=== PATIENT | female | born 1975 | race African-American/Black ===

== ENCOUNTER 2017-06-06 10:45 | Emergency (ER) | payer OTHER ==
[~2017-06-06] VITALS: Ht 167.6 cm; Wt 90.7 kg
[~2017-06-06 10:45] MED LIST: KENALOG 0.1% CR15 GM APPLIC; NKM
[2017-06-06 10:50] VITALS: BP 141/85
[2017-06-06] MEDS ORDERED: KENALOG 0.025%15 GM APPLIC (11:20)
[2017-06-06] MEDS ORDERED: ADULT WAL-100 MG/5 M ORAL (11:47)
[2017-06-06 11:48] VITALS: BP 116/75
[2017-06-06 11:50] VITALS: BP 116/75
--- NOTE | 2017-06-06 15:54 | Emergency Room Report ---
History of Present Illness General Chief Complaint: Skin Rash/Abscess Source: Patient Present Illness HPI The patient is a 41-year-old female presents for increased rash. Patient states it has prior history of dyshidrotic eczema. She reports having increased rash. Her neck as well as to her hands. She denies recent necklace use or any fever. She reports having upper respiratory infection. Allergies: Coded Allergies: No Known Allergies (Unverified , 09/02/12) Patient History Past Medical History: see triage record Now: No Reviewed Nursing Documentation: PMH: Agreed, PSxH: Agreed Nursing Documentation-PMH Past Medical History: No Stated History Hx Cancer: No Review of Systems All Other Systems: negative except mentioned in HPI Physical Exam Vital Signs Date Time Temp Pulse Resp B/P (MAP) Pulse Ox O2 Delivery O2 Flow Rate FiO2 06/06/17 10:50 98.9 62 18 141/85 98 Room Air 98.9 General Appearance: well appearing, no apparent distress, alert, GCS 15 Head: normocephalic, atraumatic ENT: hearing grossly normal, normal voice Neck: full range of motion, supple Respiratory: no respiratory distress, speaking full sentences Musculoskeletal: no calf tenderness Neurologic: normal inspection, alert, oriented x3, responsive, manager alliance III-XII nml as tested, motor strength/tone normal, normal gait Psychiatric: mood/affect normal Skin: other - scaly rash near neck, some blistering between fingers without ulceration Medical Decision Making Diagnostic Impression: Primary Impression: Eczema ER Course Patient presented for skin rash. Differential diagnosis included was not limited to Hilario-Jacek syndrome, urticaria, erythema multiforme, contact dermatitis. Patient's benign exam and does not appear to require any further imaging or laboratory testing at this time. The patient presented exacerbation of her eczema.The patient is advised to follow up with primary care doctor in 1 -2 days. Patient is advised to return if any worsening condition or if any changes in status that are concerning. This report is dictated with [employer] clean energy policy analyst software which may occasionally lead to discrepancies related to use of this software. Last Vital Signs Date Time Temp Pulse Resp B/P (MAP) Pulse Ox O2 Delivery O2 Flow Rate FiO2 06/06/17 11:50 98.2 62 17 116/75 97 Room Air 98.2 Status: improved Disposition: HOME, SELF-CARE Condition: Stable Scripts Guaifenesin* (ADULT WAL-TUSSIN*) 100 Mg/5 Ml Liquid 10 ML ORAL Q4H for For Cough, #120 ML Prov: Boaz Aviles 06/06/17 Triamcinolone Acet (Triamcinolone Acetonide) 15 Gm Cream..g. 15 GM APPLIC DAILY, #15 GM Prov: Boaz Aviles 06/06/17 [facility] ([facility]P) Patient Instructions: Eczema Boaz Aviles Jun 06, 2017 15:53
== END 2017-06-06 11:50 | disposition home or self-care (01) ==
LOC: EMR 11:10
DX: L30.9 Dermatitis, unspecified (principal)
CPT/HCPCS: 99283

== ENCOUNTER 2017-06-21 10:52 | Emergency (ER) | payer OTHER ==
[~2017-06-21] VITALS: Ht 167.6 cm; Wt 99.8 kg
[~2017-06-21 10:52] MED LIST changes: +ADULT WAL-100 MG/5 M ORAL; +KENALOG 0.025%15 GM APPLIC
--- NOTE | 2017-06-21 12:04 | Emergency Room Report ---
History of Present Illness General Chief Complaint: Flu Like Symptoms Source: Patient Present Illness HPI 41 yo female patient presents to ER complaining of cough and flu-like symptoms x3 days. Patient repots cough with sputum. Complains of subjective fever, BRIAN, and chills. Reports taking Theraflu for relief of symptoms; denies use of Ibuprofen or Acetaminophen. Patient reports hx of sick contacts at work. Patient denies nausea, vomiting. Complains of diarrhea; denies blood in stool. Patient reports hx of asthma; has not use medication in "a long time". Denies hx of cardiovascular disease. Denies dysuria, hematuria, chest pain, rash. Allergies: Coded Allergies: No Known Allergies (Unverified , 09/02/12) Patient History Past Medical History: see triage record Now: No Reviewed Nursing Documentation: PMH: Agreed, PSxH: Agreed Nursing Documentation-PMH Past Medical History: No Stated History Hx Cancer: No Review of Systems All Other Systems: negative except mentioned in HPI Physical Exam Vital Signs Date Time Temp Pulse Resp B/P (MAP) Pulse Ox O2 Delivery O2 Flow Rate FiO2 06/21/17 11:07 99.4 110 17 117/73 98 Room Air 99.3 Sp02 EP Interpretation: reviewed, normal General Appearance: well appearing, no apparent distress, alert, GCS 15 Head: normocephalic, atraumatic Eyes: bilateral eye normal inspection, bilateral eye PERRL ENT: hearing grossly normal, normal pharynx, no angioedema, normal voice, TMs + canals normal, uvula midline, moist mucus membranes Neck: full range of motion, no bony tend Respiratory: lungs clear, no rhonchi, no respiratory distress, no accessory muscle use, no wheezing, speaking full sentences, other - decreased breath sounds, chest TTP Cardiovascular #1: regular rate, rhythm, no edema Gastrointestinal: non tender, soft, no mass, non-distended, no guarding, no rebound Musculoskeletal: back normal, digits/nails normal, gait/station normal, normal range of motion, non-tender Neurologic: alert, oriented x3, responsive, motor strength/tone normal, sensory intact Psychiatric: mood/affect normal Skin: no rash Lymphatic: no adenopathy Medical Decision Making PA Attestation Dr. Aviles is my supervising Physician whom patient management has been discussed with. Diagnostic Impression: Primary Impression: Urinary tract infection Additional Impression: Influenza-like symptoms ER Course Pt presents to ED c/o cough and flu-like symptoms. DDX considered but are not limited to viral URI, bronchitis, UTI. On PE, no wheezes, rhonci or rales, decreased air movement, will provide breathing treatment. Chest is TTP; chest pain likely musculoskeletal in nature secondary to cough, does not require cardiac workup at this time. Patient instructed to take NSAIDs as needed for pain symptoms. Patient is afebrile, no crackles or rhonci on auscultation, well appearing; low suspicion for PNA, does not require CXR at this time. Patient instructed to take NSAIDs as needed for pain symptoms. VITAL SIGNS are WNL, patient is afebrile. Ordered breathing treatment, medication, and UA. ER COURSE UA shows WBC and leukocyte esterase. Will treat for UTI with abx. Discussed results with patient. Patient provided with dexamethasone. Albuterol/Atrovent breathing treatment provided. Following treatment patient lungs clear to auscultation, air moving well, no wheezes, rhonci or rales. Patient is breathing without difficulty. Patient is resting comfortably in no acute distress. DISCHARGE: -Rx given for Prednisone. -Rx provided for Albuterol MDI. -Rx provided for Bactrim At this time pt is stable for d/c to home. Patient is resting comfortably in no acute distress, nontoxic appearing, able to answer questions without difficulty. Patient to take medications as instructed Will provide with patient care instructions and any necessary prescriptions. Care plan and follow-up instructions provided. Patient instructed to follow-up with primary care provider in 3 - 5 days for further treatment and referral. Patient questions asked and answered. Patient reports understanding and agreement to treatment plan. ER precautions given. Patient instructed to return to ER immediately for any new or worsening of symptoms including but not limited to increasing SOB, persistent fever. Labs Test 06/21/17 12:40 Urine Color Yellow Urine Appearance Clear Urine pH 5 (4.5-8.0) Urine Specific [place] 1.025 (1.005-1.035) Urine Protein 2+ (NEGATIVE) Urine Glucose (UA) Negative (NEGATIVE) Urine Ketones 2+ (NEGATIVE) Urine Occult Blood 2+ (NEGATIVE) Urine Nitrite Negative (NEGATIVE) Urine Bilirubin Negative (NEGATIVE) Urine Urobilinogen 1 MG/DL (0.0-1.0) Urine Leukocyte Esterase 1+ (NEGATIVE) Urine RBC 2-4 /HPF (0 - 2) Urine WBC 2-4 /HPF (0 - 2) Urine Squamous Epithelial Cells Few /LPF (NONE/OCC) Urine Bacteria Few /HPF (NONE) Urine Mucus Moderate /LPF (NONE/OCC) Last Vital Signs Date Time Temp Pulse Resp B/P (MAP) Pulse Ox O2 Delivery O2 Flow Rate FiO2 06/21/17 11:36 110 17 Room Air 06/21/17 11:07 99.4 117/73 98 99.3 Disposition: HOME, SELF-CARE Condition: Stable Scripts Acetaminophen* (TYLENOL EXTRA STRENGTH*) 500 Mg Tablet 500 MG ORAL Q8H Y for Prn Headache/Temp > 101, #30 TAB 0 Refills Prov: Dylon Zelaya 06/21/17 Trimethoprim/Sulfamethoxazole 160/800* (BACTRIM DS TABLET*) 1 Each Tablet 1 TAB ORAL TWICE A DAY for 7 Days, #14 TAB Prov: Dylon Zelaya 06/21/17 Albuterol Sulfate* (ALBUTEROL SULFATE MDI*) 8.5 Gm Hfa.aer.ad 2 PUFF INH Q6H, #1 INH 0 Refills Prov: Dylon Zelaya 06/21/17 Patient Instructions: Upper Respiratory Infection, Adult, [id number], Urinary Tract Infection Additional Instructions: Followup with primary care provider in 3 -5 days. Take medications as directed. Patient questions asked and answered. ER precautions given, patient instructed to return to ER immediately for any new or worsening of symptoms. Dylon Zelaya Jun 21, 2017 12:04
[2017-06-21] MEDS ORDERED: Albuterol/Ipratropium 3ml neb HHN ONE ×2 (12:15)
[2017-06-21 13:15] LABS: BILIRUBIN, URINE NEGATIVE (NEGATIVE); GLUCOSE, URINE (UA) NEGATIVE (NEGATIVE); KETONES,URINE 2+ (NEGATIVE); LEUKOCYTE ESTERASE ,URINE 1+ (NEGATIVE); NITRITE,URINE NEGATIVE (NEGATIVE); PH,URINE 5 (4.5-8.0); PROTEIN,URINE 2+ (NEGATIVE); UROBILINOGEN,URINE 1 MG/DL (0.0-1.0)
[2017-06-21 13:17] LABS: APPEARANCE,URINE CLEAR; COLOR,URINE YELLOW
[2017-06-21] MEDS ORDERED: BACTRIM DS TAB1 EAC1 ORAL (13:30)
[2017-06-21] MEDS ORDERED: TYLENOL EXTRA500 MG ORAL (13:30)
[2017-06-21] MEDS ORDERED: ALBUTEROL SULF8.5 GM INH (13:30)
[2017-06-21 13:39] VITALS: BP 125/80
== END 2017-06-21 13:40 | disposition home or self-care (01) ==
LOC: EMR 13:40
DX: N39.0 Urinary tract infection, site not specified (principal); J11.1 Influenza due to unidentified influenza virus with other respiratory manifestations
CPT/HCPCS: 81003; 94640; 94664; 99284; J8540; J7620

== ENCOUNTER 2018-02-11 19:25 | Emergency (ER) | payer OTHER ==
[~2018-02-11] VITALS: Ht 167.6 cm; Wt 99.8 kg
[~2018-02-11 19:25] MED LIST changes: +ALBUTEROL SULF8.5 GM INH; +BACTRIM DS TAB1 EAC1 ORAL; +TYLENOL EXTRA500 MG ORAL
[2018-02-11 19:44] VITALS: BP 160/99
[2018-02-11] MEDS ORDERED: Sodium Chloride 500ML 500 ML IV ONE (19:55)
--- NOTE | 2018-02-11 19:56 | Emergency Room Report ---
History of Present Illness General Chief Complaint: Abdominal Pain Source: Patient Present Illness HPI Patient is a 42-year-old female who presented after one day of increased epigastric pain. Patient reports having prior history of tubal ligation. She denies other surgeries. Patient reports having nausea and vomiting. She states this began after eating Martiniquais food. She denies any fever. She had not been having any diarrhea. Allergies: Coded Allergies: No Known Allergies (Unverified , 09/02/12) Patient History Past Medical History: see triage record Last Menstrual Period: NA Now: No Reviewed Nursing Documentation: PMH: Agreed; PSxH: Agreed Nursing Documentation-PMH Past Medical History: No Stated History Hx Cancer: No Review of Systems All Other Systems: negative except mentioned in HPI Physical Exam Vital Signs Date Time Temp Pulse Resp B/P (MAP) Pulse Ox O2 Delivery O2 Flow Rate FiO2 02/11/18 19:31 98.2 78 18 160/99 100 Room Air Sp02 EP Interpretation: reviewed, normal General Appearance: normal inspection, well appearing, no apparent distress, alert, GCS 15 Head: atraumatic ENT: normal ENT inspection, hearing grossly normal, normal voice Neck: normal inspection, full range of motion, supple, no bony tend Respiratory: normal inspection, lungs clear, normal breath sounds, no respiratory distress, no retraction, no wheezing Cardiovascular #1: regular rate, rhythm, no edema Gastrointestinal: normal inspection, soft, tenderness - suprapubic and right lower abdomen Genitourinary: no CVA tenderness Musculoskeletal: normal inspection, back normal, normal range of motion Neurologic: normal inspection, alert, oriented x3, responsive, braz[employer] production line III-XII nml as tested, speech normal Psychiatric: normal inspection, judgement/insight normal, mood/affect normal Skin: normal inspection, normal color, no rash Medical Decision Making Diagnostic Impression: Primary Impression: Abdominal pain Additional Impression: Pelvic congestion ER Course Patient presented for abdominal pain. Differential diagnoses included ischemic bowel, appendicitis, perforated viscus, abdominal aortic aneurysm, inferior myocardial infarction, viral gastroenteritis Because of complexity of patient's case laboratory testing and imaging studies were ordered. CT imaging of the abdomen pelvis read by radiology showed some evidence of pelvic congestion. The laboratory testing was unremarkable.The patient was advised outpatient MANAGER TRANSFER follow-up as she was given prescription for doxycycline and Colace.The patient's return if she had any worsening condition or other concerns. Labs Test 02/11/18 19:55 02/11/18 20:05 Urine Color Pale yellow Urine Appearance Clear Urine pH 5 (4.5-8.0) Urine Specific [place] 1.015 (1.005-1.035) Urine Protein Negative (NEGATIVE) Urine Glucose (UA) Negative (NEGATIVE) Urine Ketones Negative (NEGATIVE) Urine Blood Negative (NEGATIVE) Urine Nitrite Negative (NEGATIVE) Urine Bilirubin Negative (NEGATIVE) Urine Urobilinogen Normal MG/DL (0.0-1.0) Urine Leukocyte Esterase Negative (NEGATIVE) Urine HCG, Qualitative Negative (NEGATIVE) Urine Opiates Screen Negative (NEGATIVE) Urine Barbiturates Screen Negative (NEGATIVE) Phencyclidine (PCP) Screen Negative (NEGATIVE) Urine Amphetamines Screen Negative (NEGATIVE) Urine Benzodiazepines Screen Negative (NEGATIVE) Urine Cocaine Screen Negative (NEGATIVE) Urine Marijuana (THC) Screen Negative (NEGATIVE) White Blood Count 9.8 K/UL (4.8-10.8) Red Blood Count 3.89 M/UL (4.20-5.40) Hemoglobin 12.4 G/DL (12.0-16.0) Hematocrit 36.5 % (37.0-47.0) Mean Corpuscular Volume 94 FL (80-99) Mean Corpuscular Hemoglobin 31.9 PG (27.0-31.0) Mean Corpuscular Hemoglobin Concent 34.0 G/DL (32.0-36.0) Red Cell Distribution Width 11.8 % (11.6-14.8) Platelet Count 364 K/UL (150-450) Mean Platelet Volume 5.9 FL (6.5-10.1) Neutrophils (%) (Auto) 52.4 % (45.0-75.0) Lymphocytes (%) (Auto) 37.4 % (20.0-45.0) Monocytes (%) (Auto) 7.4 % (1.0-10.0) Eosinophils (%) (Auto) 2.0 % (0.0-3.0) Basophils (%) (Auto) 0.8 % (0.0-2.0) Sodium Level 140 MMOL/L (136-145) Potassium Level 3.8 MMOL/L (3.5-5.1) Chloride Level 104 MMOL/L (98-107) Carbon Dioxide Level 26 MMOL/L (21-32) Anion Gap 10 mmol/L (5-15) Blood Urea Nitrogen 9 mg/dL (7-18) Creatinine 0.9 MG/DL (0.55-1.30) Estimat Glomerular Filtration Rate > 60 mL/min (>60) Glucose Level 88 MG/DL (74-106) Calcium Level 8.8 MG/DL (8.5-10.1) Total Bilirubin 0.2 MG/DL (0.2-1.0) Aspartate Amino Transf (AST/SGOT) 22 U/L (15-37) Alanine Aminotransferase (ALT/SGPT) 30 U/L (12-78) Alkaline Phosphatase 89 U/L (46-116) Total Protein 7.7 G/DL (6.4-8.2) Albumin 3.5 G/DL (3.4-5.0) Globulin 4.2 g/dL Albumin/Globulin Ratio 0.8 (1.0-2.7) Lipase 142 U/L (73-393) Last Vital Signs Date Time Temp Pulse Resp B/P (MAP) Pulse Ox O2 Delivery O2 Flow Rate FiO2 02/11/18 19:44 78 18 Room Air 02/11/18 19:44 98.2 160/99 100 Status: improved Disposition: HOME, SELF-CARE Condition: Stable Scripts Doxycycline Monohydrate* (DOXYCYCLINE MONOHYDRATE*) 100 Mg Capsule 100 MG ORAL Q12H, #14 CAP 0 Refills Prov: Boaz Aviles MD 02/11/18 Docusate Sodium* (COLACE*) 100 Mg Capsule 100 MG ORAL TWICE A DAY, #20 CAP Prov: Boaz Aviles MD 02/11/18 Boaz Aviles MD Feb 11, 2018 19:56
[2018-02-11] MEDS ORDERED: Isovue-300 100ml vial INJ PRN (20:00)
[2018-02-11 20:06] LABS: APPEARANCE,URINE CLEAR; BILIRUBIN, URINE NEGATIVE (NEGATIVE); COLOR,URINE PALE YELLOW; GLUCOSE, URINE (UA) NEGATIVE (NEGATIVE); KETONES,URINE NEGATIVE (NEGATIVE); LEUKOCYTE ESTERASE ,URINE NEGATIVE (NEGATIVE); NITRITE,URINE NEGATIVE (NEGATIVE); PH,URINE 5 (4.5-8.0); PROTEIN,URINE NEGATIVE (NEGATIVE); UROBILINOGEN,URINE NORMAL MG/DL (0.0-1.0)
[2018-02-11 20:17] LABS: BASOPHILS % (AUTO) 0.8 % (0.0-2.0); HEMATOCRIT 36.5 % (37.0-47.0); HEMOGLOBIN 12.4 G/DL (12.0-16.0); LYMPHOCYTES % (AUTO) 37.4 % (20.0-45.0); MEAN CORPUSCULAR VOLUME 94 FL (80-99); MONOCYTES % (AUTO) 7.4 % (1.0-10.0); NEUTROPHILS % (AUTO) 52.4 % (45.0-75.0); PLATELET COUNT 364 K/UL (150-450); RED BLOOD COUNT 3.89 M/UL (4.20-5.40); RED CELL DISTRIBUTION WIDTH 11.8 % (11.6-14.8); WHITE BLOOD COUNT 9.8 K/UL (4.8-10.8)
[2018-02-11 20:23] LABS: ANION GAP 10 mmol/L (5-15); BLOOD UREA NITROGEN 9 mg/dL (7-18); CALCIUM 8.8 MG/DL (8.5-10.1); CARBON DIOXIDE 26 MMOL/L (21-32); CHLORIDE 104 MMOL/L (98-107); CREATININE 0.9 MG/DL (0.55-1.30); POTASSIUM 3.8 MMOL/L (3.5-5.1); SODIUM 140 MMOL/L (136-145)
[2018-02-11 20:29] LABS: ALANINE AMINOTRANSFERASE 30 U/L (12-78); ALBUMIN 3.5 G/DL (3.4-5.0); ALBUMIN/GLOBULIN RATIO 0.8 (1.0-2.7); ALKALINE PHOSPHATASE 89 U/L (46-116); ASPARTATE AMINO TRANSFERASE 22 U/L (15-37); BILIRUBIN,TOTAL 0.2 MG/DL (0.2-1.0)
--- NOTE | 2018-02-11 20:58 | Diagnostic Imaging Report ---
EXAM: CT Abdomen and Pelvis With Intravenous Contrast CLINICAL HISTORY: ABD PAIN TECHNIQUE: Axial computed tomography images of the abdomen and pelvis with intravenous contrast. CTDI is 19 mGy and DLP is 999 mGy-cm. One or more of the following dose reduction techniques were used: automated exposure control, adjustment of the mA and/or kV according to patient size, use of iterative reconstruction technique. COMPARISON: No relevant prior studies available. FINDINGS: Lung bases: No mass. No consolidation. ABDOMEN: Liver: Unremarkable. No mass. Gallbladder and bile ducts: Unremarkable. No calcified stones. Pancreas: Unremarkable. Spleen: Unremarkable. Adrenals: Unremarkable. Kidneys and ureters: Unremarkable. No hydronephrosis. Stomach and bowel: Moderate colonic stool which may be ileus/constipation. No mechanical bowel obstruction. No diverticulitis. PELVIS: Appendix: No findings to suggest acute appendicitis. Bladder: Mildly thickened bladder which may be underdistention versus cystitis. Reproductive: Possible mild pelvic stranding, correlate clinically for PID or cystitis. ABDOMEN and PELVIS: Intraperitoneal space: No free air. Bones/joints: No acute fracture. Soft tissues: Unremarkable. Vasculature: Unremarkable. Lymph nodes: Unremarkable. No enlarged lymph nodes. IMPRESSION: 1. Moderate colonic stool which may be ileus/constipation. No mechanical bowel obstruction. No diverticulitis. 2. Possible mild pelvic stranding, correlate clinically for PID or cystitis.
[2018-02-11] MEDS ORDERED: COLACE100 MG ORAL (21:11)
[2018-02-11] MEDS ORDERED: DOXYCYCLINE MO100 MG ORAL (21:11)
[2018-02-11] MEDS ORDERED: cefTRIAXone 1 GM in NS 55 ML IVPB ONE (21:15)
[2018-02-11 22:15] VITALS: BP 115/54
== END 2018-02-11 22:17 | disposition home or self-care (01) ==
LOC: EMR 20:15
DX: R10.13 Epigastric pain (principal); N94.89 Other specified conditions associated with female genital organs and menstrual cycle
CPT/HCPCS: 36415; 74177; 80053; 80307; 81003; 81025; 83690; 85025; 96365; 96375; 99284; J0696; J2405; Q9967; S0028

== ENCOUNTER 2018-07-04 21:47 | Emergency (ER) | payer OTHER ==
[~2018-07-04] VITALS: Ht 167.6 cm; Wt 99.8 kg
[~2018-07-04 21:47] MED LIST changes: +COLACE100 MG ORAL; +DOXYCYCLINE MO100 MG ORAL
[2018-07-04 22:10] VITALS: BP 131/81
--- NOTE | 2018-07-04 22:10 | NUR ---
ED Nurse Note: Pt arrived ED from home, c/o skin rashes on neck area which got worse for 2 weeks. Pt is A/O X 4. VSS. Waitng for orders.
[2018-07-04] MEDS ORDERED: KENALOG 0.025%15 GM APPLIC (23:16)
[2018-07-04] MEDS ORDERED: MEDROL DOSEPAK4 MG ORAL (23:16)
[2018-07-04 23:20] VITALS: BP 130/82
--- NOTE | 2018-07-04 23:20 | NUR ---
ER DISCHARGE NOTE: Patient is cleared to be discharged per Victoria. Pt is aox4 on room air with stable vital signs. Pt was given dc and prescription instructions, pt was able to verbalize understanding. Pt's ID band removed. Pt is able to ambulate with steady gait, pt took all belongings.
--- NOTE | 2018-07-05 02:21 | Emergency Room Report ---
History of Present Illness General Chief Complaint: Skin Rash/Abscess Source: Patient Present Illness HPI Patient presents with complaints of exacerbation of her underlying eczema She reports over the past several days the irritation has become worse and the itching is worsening Reports discomfort in the upper chest in the folds of Her neck and fold of her inguinal region Denies any fevers or chills Patient reports that she has seen multiple dermatologists She did take a Benadryl after this initiation of the reaction Allergies: Coded Allergies: No Known Allergies (Unverified , 09/02/12) Patient History Past Medical History: see triage record Pertinent Family History: none Last Menstrual Period: 06/05/18 Now: No : 3 Para: 3 Reviewed Nursing Documentation: PMH: Agreed; PSxH: Agreed Nursing Documentation-PMH Past Medical History: No History, Except For Hx Asthma: Yes Hx Cancer: No Review of Systems All Other Systems: negative except mentioned in HPI Physical Exam Vital Signs Date Time Temp Pulse Resp B/P (MAP) Pulse Ox O2 Delivery O2 Flow Rate FiO2 07/04/18 21:55 97.9 75 18 141/84 100 Room Air Sp02 EP Interpretation: reviewed, normal General Appearance: well appearing, no apparent distress Head: normocephalic, atraumatic Eyes: bilateral eye PERRL, bilateral eye EOMI ENT: hearing grossly normal, normal pharynx Neck: supple, thyroid normal Respiratory: lungs clear, no retraction, no accessory muscle use Cardiovascular #1: regular rate, rhythm Gastrointestinal: non tender, soft Musculoskeletal: normal inspection Neurologic: alert, oriented x3 Skin: other - Moderate atopic dermatitis, several areas specifically in the fold of the neck that show mild erythema, and questionable secondarily fungal infection Lymphatic: no adenopathy Medical Decision Making Diagnostic Impression: Primary Impression: Eczema Additional Impression: dermatitis ER Course Patient presents with fairly moderate dermatitis Eczema patient is provided with oral steroids Also provided with antifungal medicine And requires close outpatient follow-up Last Vital Signs Date Time Temp Pulse Resp B/P (MAP) Pulse Ox O2 Delivery O2 Flow Rate FiO2 07/04/18 22:10 97.9 78 18 131/81 100 Room Air Status: improved Disposition: HOME, SELF-CARE Condition: Improved Scripts Triamcinolone Acet (Triamcinolone Acetonide) 15 Gm Cream..g. 1 INCH APPLIC BID for 7 Days, GM Prov: Devin Kessler DO 07/04/18 Methylprednisolone (Methylprednisolone*) 4MG Dspk 4 MG ORAL DIRECTED for 6 Days, #21 EA 0 Refills Day 1: Two tablets before breakfast, one after lunch, one after dinner, and two at bedtime. If started late in the day, take all six tablets at once or divide into two or three doses, unless otherwise directed by prescriber. Day 2: One tablet before breakfast, one after lunch, one after dinner, and two at bedtime Day 3: One tablet before breakfast, one after lunch, one after dinner, and one at bedtime Day 4: One tablet before breakfast, one after lunch, and one at bedtime Day 5: One tablet before breakfast and one at bedtime Day 6: One tablet before breakfast Prov: Devin Kessler DO 07/04/18 [facility] ([facility]P) Patient Instructions: Rash, Rash, [id number] Additional Instructions: Patient is provided with the discharge instructions notified to follow up with primary doctor in the next 2-3 days otherwise return to the er with any worsening symptoms. Please note that this report is being documented using [employer] technology. This can lead to erroneous entry secondary to incorrect interpretation by the dictating instrument. Devin Kessler DO Jul 05, 2018 02:21
== END 2018-07-04 23:20 | disposition home or self-care (01) ==
LOC: EMR 22:22
DX: L30.9 Dermatitis, unspecified (principal); J45.909 Unspecified asthma, uncomplicated
CPT/HCPCS: 99282; J7512

== ENCOUNTER 2018-07-30 08:19 | Emergency (ER) | payer OTHER ==
[~2018-07-30] VITALS: Ht 167.6 cm; Wt 99.8 kg
[~2018-07-30 08:19] MED LIST changes: +MEDROL DOSEPAK4 MG ORAL
--- NOTE | 2018-07-30 08:56 | Emergency Room Report ---
History of Present Illness General Chief Complaint: Skin Rash/Abscess Source: Patient, Medical Record Present Illness HPI Patient presents with complaints of ongoing rash She reports that she has underlying eczema And feels that the symptoms are continued to progress Denies any chest pain or shortness of breath she complains of pain to the folds of her skin specifically the lower abdomen and the neck area Patient reports that is very uncomfortable when she goes to work She feels that her clothes cause increased pain Patient has not followed up with any other specialist since her last visit to the emergency room She reports that other doctors and nuclear station operator helpful to her similar things and does not feel that she's getting any further answers Allergies: Coded Allergies: No Known Allergies (Unverified , 09/02/12) Patient History Past Medical History: see triage record Pertinent Family History: none Last Menstrual Period: 07/03/18 Reviewed Nursing Documentation: PMH: Agreed; PSxH: Agreed Nursing Documentation-PMH Past Medical History: No History, Except For Hx Asthma: Yes Hx Cancer: No Review of Systems All Other Systems: negative except mentioned in HPI Physical Exam Vital Signs Date Time Temp Pulse Resp B/P (MAP) Pulse Ox O2 Delivery O2 Flow Rate FiO2 07/30/18 08:23 98.4 71 18 124/78 97 Room Air Sp02 EP Interpretation: reviewed, normal General Appearance: well appearing, no apparent distress Head: normocephalic, atraumatic Eyes: bilateral eye PERRL, bilateral eye EOMI ENT: normal pharynx Neck: full range of motion, supple Respiratory: lungs clear Cardiovascular #1: regular rate, rhythm Gastrointestinal: non tender, soft Musculoskeletal: normal inspection Neurologic: alert, oriented x3, responsive Skin: other - Systemic areas of eczema involving the fold of the skin including the neck also facial erythema and thickness of the skin, no sloughing of the skin, no petechiae or dermatomal pattern findings are consistent with dyshidrotic eczema,, Lymphatic: no adenopathy Medical Decision Making Diagnostic Impression: Primary Impression: Eczema Additional Impression: Rash and other nonspecific skin eruption ER Course Given the patient's history and presentation there is evidence of chronic eczema possible secondary worsening symptoms with fungal type infection I had a long discussion with the patient regarding the appropriate outpatient follow-up with this Patient appears to have systemic findings with this as well requires dermatology and more specialty follow-up patient reports that she does not have any insurance at this time And she was provided information regarding the [facility] Last Vital Signs Date Time Temp Pulse Resp B/P (MAP) Pulse Ox O2 Delivery O2 Flow Rate FiO2 07/30/18 08:23 98.4 71 18 124/78 97 Room Air Status: improved Disposition: HOME, SELF-CARE Condition: Stable Scripts Methylprednisolone (Methylprednisolone*) 4MG Dspk 4 MG ORAL DIRECTED for 6 Days, #21 EA 0 Refills Day 1: Two tablets before breakfast, one after lunch, one after dinner, and two at bedtime. If started late in the day, take all six tablets at once or divide into two or three doses, unless otherwise directed by prescriber. Day 2: One tablet before breakfast, one after lunch, one after dinner, and two at bedtime Day 3: One tablet before breakfast, one after lunch, one after dinner, and one at bedtime Day 4: One tablet before breakfast, one after lunch, and one at bedtime Day 5: One tablet before breakfast and one at bedtime Day 6: One tablet before breakfast Prov: Devin Kessler DO 07/30/18 Nystatin* (NYSTATIN*) 15 Gm Cream..g. 1 APPLIC TOPIC THREE TIMES A DAY for 7 Days, GM Prov: Devin Kessler DO 07/30/18 Hydrocortisone 2% Cream (ANTI-ITCH 2% CREAM) Y Cr 56 GM TP DAILY for 7 Days, GM Prov: Devin Kessler DO 07/30/18 Additional Instructions: Patient is provided with the discharge instructions notified to follow up with primary doctor in the next 2-3 days otherwise return to the er with any worsening symptoms. Please note that this report is being documented using [employer] technology. This can lead to erroneous entry secondary to incorrect interpretation by the dictating instrument. Devin Kessler DO Jul 30, 2018 08:56
[2018-07-30] MEDS ORDERED: NYSTATIN15 GM TOPIC (09:02)
[2018-07-30] MEDS ORDERED: MEDROL DOSEPAK4 MG ORAL (09:02)
[2018-07-30] MEDS ORDERED: ANTI-ITCH56 GM TP (09:02)
[2018-07-30 09:07] VITALS: BP 124/78
[2018-07-30 09:14] VITALS: BP 124/78
--- NOTE | 2018-07-30 09:16 | NUR ---
ED Nurse Note: pt cleared to be d/c per ERMD, pt discharge and aftercare instruction provided w/ prescription, pt education done via discussion and handout, pt advised to follow up with pcp or return to ed if sx worsen or new sx develop, pt verbalized understanding and agrees with plan, vss, ambulatory w/ steady gait, left w/ all belongings. ID band removed
== END 2018-07-30 09:17 | disposition home or self-care (01) ==
LOC: EMR 08:35
DX: L30.9 Dermatitis, unspecified (principal); R21 Rash and other nonspecific skin eruption
CPT/HCPCS: 99283

== ENCOUNTER 2018-12-18 12:07 | Emergency (ER) | payer OTHER ==
[~2018-12-18] VITALS: Ht 162.6 cm; Wt 99.8 kg
[~2018-12-18 12:07] MED LIST changes: +ANTI-ITCH56 GM TP; +NYSTATIN15 GM TOPIC
[2018-12-18 12:12] VITALS: BP 143/73
--- NOTE | 2018-12-18 12:21 | NUR ---
ED Nurse Note: Pt walked in due to bilateral eye discomfort with burning sensation x 4 days. Also c/o eczema on hands and neck. AAO x4 and ambulatory.
[2018-12-18] MEDS ORDERED: Fluorescein Strips BOTH EYES ONE (12:30)
[2018-12-18] MEDS ORDERED: Tetracaine 0.5% Opth 4ml Soln LEFT EYE ONE (12:30)
[2018-12-18] MEDS ORDERED: Tetracaine 0.5% Opth 4ml Soln RIGHT EYE ONE (12:30)
--- NOTE | 2018-12-18 12:30 | NUR ---
ED Nurse Note: Pulled out 2 flourescein strips from pyxis per Sara/[facility] order.
--- NOTE | 2018-12-18 12:35 | Emergency Room Report ---
History of Present Illness General Chief Complaint: Eye Problems Present Illness HPI 43 YO female presents to the ED c/o : 10/10 in severity burning pain in the bilateral eyes along with redness, sticky discharge, and increased lacrimation x2 days, Pt. reports initially severely itchy eyes bilaterally x 4 days with associated eczematoid break out on the face. Pt. reports hx of environmental allergies. Denies trauma to the eye. Denies contact lens use. Denies loss of vision, floaters, tunnel vision, or double vision. Pt. reports eye symptoms are causing her to have a BRIAN. Denies N/V/F/C. Pt. also reports photophobia. Allergies: Coded Allergies: No Known Allergies (Unverified , 09/02/12) Patient History Past Medical History: see triage record Past Surgical History: none Pertinent Family History: none Now: No Reviewed Nursing Documentation: PMH: Agreed; PSxH: Agreed Nursing Documentation-PMH Past Medical History: No History, Except For Hx Asthma: Yes Hx Cancer: No Review of Systems All Other Systems: negative except mentioned in HPI Physical Exam Vital Signs Date Time Temp Pulse Resp B/P (MAP) Pulse Ox O2 Delivery O2 Flow Rate FiO2 12/18/18 12:12 97.3 81 19 143/73 (96) 97 Room Air Sp02 EP Interpretation: reviewed, normal General Appearance: no apparent distress, alert, GCS 15, non-toxic Head: normocephalic, atraumatic Eyes: bilateral eye normal inspection, bilateral eye PERRL - no fixed mid- dilated pupils, bilateral eye EOMI, bilateral eye lid inflammation - mild upper and lower lid inflammation bilaterally, wet/gooey appearance of lashes bilateraly., bilateral eye other - conjunctival erythema bilaterally, scant purulent d/c noted in the tear troughs. ENT: hearing grossly normal, normal voice Neck: full range of motion Respiratory: chest non-tender, lungs clear, normal breath sounds, speaking full sentences Cardiovascular #1: regular rate, rhythm, no edema Gastrointestinal: normal bowel sounds, non tender, soft Rectal: deferred Genitourinary: normal inspection Musculoskeletal: back normal, gait/station normal, normal range of motion, non- tender Neurologic: alert, oriented x3, responsive, motor strength/tone normal, sensory intact, speech normal, grossly normal Psychiatric: judgement/insight normal Lymphatic: no adenopathy Medical Decision Making PA Attestation Dr. Aviles is my supervising Physician whom patient management has been discussed with. Diagnostic Impression: Primary Impression: Conjunctivitis Qualified Codes: H10.9 - Unspecified conjunctivitis ER Course 43 YO female presents to the ED c/o : 10 in severity burning pain in the bilateral eyes along with redness, sticky discharge, and increased lacrimation x2 days, Pt. reports initially severely itchy eyes bilaterally x 4 days with associated eczematoid break out on the face. Pt. reports hx of environmental allergies. Denies trauma to the eye. Denies contact lens use. Denies loss of vision, floaters, tunnel vision, or double vision. Pt. reports eye symptoms are causing her to have a BRIAN. Denies N/V/F/C. Pt. also reports photophobia. Ddx considered but are not limited to: corneal abrasion, acute glaucoma, globe rupture, FB, Corneal Ulcer, conjunctivitis. Iridis, orbital cellulitis,keratitis , sinusitis Vital signs: are WNL, pt. is afebrile H&PE are most consistent with: bacterial conjunctivitis secondary to allergic conjunctivitis. -Normal eye exam, no fluorescein uptake. ORDERS: none at this time. ED INTERVENTIONS: none at this time. Pt. given strict Ophthalmology follow up instructions as well as symptoms that would warrant prompt return to the ED. DISCHARGE: At this time pt. is stable for d/c to home. Will provide printed patient care instructions, and any necessary prescriptions. Care plan and follow up instructions have been discussed with the patient prior to discharge. Last Vital Signs Date Time Temp Pulse Resp B/P (MAP) Pulse Ox O2 Delivery O2 Flow Rate FiO2 12/18/18 12:12 97.3 81 19 143/73 97 Room Air Disposition: HOME, SELF-CARE Condition: Stable Scripts Acetaminophen* (TYLENOL EXTRA STRENGTH*) 500 Mg Tablet 500 MG ORAL Q6H, #20 TAB 0 Refills Prov: Sara Reyna 12/18/18 Olopatadine Hcl (PATADAY) 2.5 Ml Drops 1 DRP OP DAILY, #2.5 ML Prov: Sara Reyna 12/18/18 Ofloxacin (OCUFLOX) 5 Ml Drops 2 DROP OP TID for 5 Days, #5 ML Prov: Sara Reyna 12/18/18 Patient Instructions: Allergic Conjunctivitis, [id number], Bacterial Conjunctivitis, [id number] Additional Instructions: Take medications as directed. Follow up with a Curator in 3 days, even if your symptoms have resolved. --Please review list of primary care clinics, if you do not already have a primary care provider Return sooner to ED if new symptoms occur, or current symptoms become worse. - Please note that this Emergency Department Report was dictated using [employer] grinder operator technology software, occasionally this can lead to erroneous entry secondary to interpretation by the dictation equipment. Sara Reyna Dec 18, 2018 12:35
[2018-12-18] MEDS ORDERED: OCUFLOX5 ML OP (12:59)
[2018-12-18] MEDS ORDERED: PATADAY2.5 ML OP (12:59)
[2018-12-18] MEDS ORDERED: TYLENOL EXTRA500 MG ORAL (12:59)
[2018-12-18 13:16] VITALS: BP 138/70
--- NOTE | 2018-12-18 13:16 | NUR ---
ER DISCHARGE NOTE: Patient is cleared to be discharged per PA, pt is aox4, on room air, with stable vital signs. pt was given dc and prescription instructions, pt was able to verbalize understanding, pt id band removed. pt is able to ambulate with steady gait. pt took all belongings.
== END 2018-12-18 13:16 | disposition home or self-care (01) ==
LOC: EMR 13:00
DX: H10.9 Unspecified conjunctivitis (principal); J45.909 Unspecified asthma, uncomplicated
CPT/HCPCS: 99282

== ENCOUNTER 2019-02-23 10:59 | Emergency (ER) | payer OTHER ==
[~2019-02-23] VITALS: Ht 167.6 cm; Wt 104.3 kg
[~2019-02-23 10:59] MED LIST changes: +OCUFLOX5 ML OP; +PATADAY2.5 ML OP
--- NOTE | 2019-02-23 11:14 | NUR ---
ED Nurse Note: RN confirmed with Dr. Frederick that pt is ok to be fast track area without negative pressure isolation. Rn informed Dr. Frederick that pt does not have any sx and N95 mask provide.
[2019-02-23 12:04] VITALS: BP 130/75
--- NOTE | 2019-02-23 12:12 | NUR ---
ED Nurse Note: pt denies symptoms wants cxr to r/o TB N95 on door closed ermd eval done pt awaiting chest xray.
--- NOTE | 2019-02-23 12:57 | Emergency Room Report ---
History of Present Illness General Chief Complaint: Upper Respiratory Illness Source: Patient Present Illness HPI Patient presents with a history of positive gold test. She is here for evaluation with a chest x-ray x-ray. She denies fevers, chills, night sweats, weight loss, hemoptysis, wheezing, chest pain, bone pain. last TB test 15 years ago neg. Had gold test to see about treatment for eczema. Eczema is active and she has itching. She has no medication at this time at home. No sore throat, chest pain, palpitations, nausea, vomiting, diarrhea, dysuria, abdominal pain, shortness of breath, joint pain, rashes, depression, anxiety, visual changes, dizziness, headache. Allergies: Coded Allergies: No Known Allergies (Unverified , 09/02/12) Patient History Past Medical History: see triage record Social History: Denies: smoking Social History Narrative not in health care Last Menstrual Period: 02/02/19 Reviewed Nursing Documentation: PMH: Agreed; PSxH: Agreed Nursing Documentation-PMH Past Medical History: No History, Except For Hx Asthma: Yes Hx Cancer: No Review of Systems All Other Systems: negative except mentioned in HPI Physical Exam Vital Signs Date Time Temp Pulse Resp B/P (MAP) Pulse Ox O2 Delivery O2 Flow Rate FiO2 02/23/19 11:14 98.1 64 18 130/75 (93) 97 Room Air Sp02 EP Interpretation: reviewed, normal General Appearance: well appearing, no apparent distress, GCS 15 Head: normocephalic Eyes: bilateral eye normal inspection, bilateral eye PERRL, bilateral eye EOMI ENT: moist mucus membranes Respiratory: lungs clear, normal breath sounds, no respiratory distress Cardiovascular #1: regular rate, rhythm Gastrointestinal: normal inspection Musculoskeletal: gait/station normal Neurologic: alert, grossly normal Psychiatric: mood/affect normal Skin: other - Eczema Medical Decision Making Diagnostic Impression: 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 Differential includes active tuberculosis, inactive tuberculosis amongst others. The patient also has eczema that is poorly controlled. Chest x -ray is indicated at this time. Based on the fact that the patient has no other somatic complaints no other laboratory testing is needed. Chest x-ray no infiltrates. Possible nodule right lower lobe. Patient treatment plan discussed with patient. Discussed finding of chest x- ray. X-ray report provided to patient. The decision for INH or rifampin will be left to the patient's private physician. No medical emergency at this time. Patient stable for outpatient observation and treatment. Chest X-Ray Diagnostic Results Chest X-Ray Diagnostic Results : Chest X-Ray Ordered: Yes # of Views/Limited/Complete: 1 View Indication: Other EP Interpretation: Yes Interpretation: no consolidation, no effusion, no pneumothorax Impression: No acute disease Electronically Signed by: Electronically signed by Kevin Frederick MD Last Vital Signs Date Time Temp Pulse Resp B/P (MAP) Pulse Ox O2 Delivery O2 Flow Rate FiO2 02/23/19 14:22 98.1 76 18 132/75 97 Room Air Status: unchanged Disposition: HOME, SELF-CARE Condition: Stable Scripts Triamcinolone Acetonide (Triamcinolone Acetonide 0.025% Oint) 80 Gm Oint...g. 1 APPLIC TP BID, #80 GM 0.25% ointment Prov: Kevin Frederick MD 02/23/19 Kevin Frederick MD Feb 23, 2019 12:57
--- NOTE | 2019-02-23 13:29 | Diagnostic Imaging Report ---
Indication: Cough, TB screen, employee health Technique: One view of the chest Comparison: none Findings: Lungs and pleural spaces are clear. Heart size is normal. No unusual calcifications Impression: No acute process
[2019-02-23] MEDS ORDERED: TRIAMCINOLONE A80 G1 TP (14:04)
[2019-02-23 14:22] VITALS: BP 132/75
--- NOTE | 2019-02-23 14:24 | NUR ---
ED Nurse Note: Pt cleared by health care Provider for discharge. DC instructions/prescription was given and explained to pt and verbalized understanding of teachings. All medical deviecs such as ID band removed. Pt is AAO x4, ambulatory and left with all personal belongings.
== END 2019-02-23 14:24 | disposition home or self-care (01) ==
LOC: EMR 11:50
DX: R76.12 Nonspecific reaction to cell mediated immunity measurement of gamma interferon antigen response without active tuberculosis (principal); L30.9 Dermatitis, unspecified; J45.909 Unspecified asthma, uncomplicated
CPT/HCPCS: 71045; 99283